=== PATIENT | female | born 1995 | race Caucasian/White ===

== ENCOUNTER 2020-04-07 11:22 | Emergency (ER) | payer SELFPAY ==
[~2020-04-07] VITALS: Ht 162.5 cm; Wt 92.0 kg
[2020-04-07 11:22] VITALS: BP 147/100
--- OUTSIDE RECORDS SUMMARY | 2020-04-07 11:27 | XMS REPORT | Continuity of Care Document ---
Author Organization Unknown Address Unknown Phone Unavailable Allergies There is no data. Medications There is no data. Problems There is no data. Procedures There is no data. Results Test Result Range SUREPATH PAP RFX HPV mRNA E6/E7 - 15:02 CLINICAL INFORMATION: NRG LMP: NRG PREV. PAP: NRG PREV. BX: NRG SOURCE: Cervix NRG STATEMENT OF ADEQUACY: NRG INTERPRETATION/RESULT: NRG ADVANCED NURSING PROFESSOR: NRG COMMENT NRG Encounters ACCT No. Visit Date/Time Discharge Status Pt. Type Provider Facility Loc./Unit Complaint [id number] 06/21/2019 14:00:00 06/21/2019 23:59:5 9 [facility] Outpatient [facility] [id number] 06/21/2019 14:00:00 Document Registration [id number] 04/07/2020 11:23:[address] Emergency ERICH DEAN, MOHIT Simms [facility] ER COVID SYMPTOMS
--- NOTE | 2020-04-07 12:20 | NUR ---
Pt swabbed for COVID-19 at this time
--- NOTE | 2020-04-07 12:30 | NUR ---
Pt exhibiting high heart rate and high blood pressure throughout visit. Pt denies cardiac history. Pt reports severe anxiety. This nurse discussed pt's condition with Marquita Allred, nurse practitioner via phone. Marquita agreed to see pt if pt desired. Pt reports currently feeling very anxious about being here. This nurse informed pt, because pt is now considered a PUI due to being tested today, pt would not be able to return to work later today. Pt reports that pt thought pt could be tested today and return to work until results come back. Pt reports this information has caused an increase in anxiety. From time of arrival to ED, male with pt has stated, "We want to be swabbed and leave." This nurse offered multiple times for pt to be seen and evaluated by a provider. At one point, pt wanted to be seen by a provider stating, "I just want to make sure I am okay." However, after conversation with male, pt and male intend to leave AMA.
--- NOTE | 2020-04-07 12:32 | ED Cough/URI ---
General Chief Complaint: Respiratory Problems Stated Complaint: COVID SYMPTOMS Nursing Triage Note: Pt c/o cold sweats, SOB for a week, diarrhea for one month and cough for 2 months. Pt is requestinig to be tested for COVID-19. Sepsis Screen: No Definite Risk History of Present Illness Date Seen by Provider: Apr 07, 2020 Time Seen by Provider: 11:45 Initial Comments 25 year old female, seen by virtual visit between ERs with [employer]IVER. Patient refuses to have a full visit, just requesting COVID-19 testing. After COVID-19 testing complete, requested to leave AMA. No further evaluation completed. Allergies and Home Medications Allergies Coded Allergies: No Known Drug Allergies (Unverified , 11/27/12) Patient Home Medication List Home Medication List Reviewed: Yes Review of Systems Review of Systems Constitutional: no symptoms reported, see HPI All Other Systems Reviewed Negative Unless Noted: Yes Past Ecachgm-Vmjwei-Qpxgbv Hx Past Med/Social Hx: Reviewed Nursing Past Med/Soc Hx Patient Social History Recent Foreign Travel: No Contact w/Someone Who Travel: No Recent Infectious Disease Expo: No Immunizations Up To Date Tetanus Booster (TDap): More than 5yrs Past Medical History Last Menstrual Period: Mar 27, 2020 Physical Exam Vital Signs - First Documented 04/07/20 11:22 Temp 37.1 Pulse 122 Resp 18 B/P (MAP) 147/100 (116) Pulse Ox 99 O2 Delivery Room Air Capillary Refill : Less Than 3 Seconds Height: '" Weight: lbs. oz. kg; 34.00 BMI Method:Stated Progress/Results/Core Measures Suspected Sepsis Recent Fever Within 48 Hours: No Infection Criteria Present: None New/Unexplained Altered Menta: No Sepsis Screen: No Definite Risk SIRS Temperature: Pulse: 122 Respiratory Rate: 18 Blood Pressure 147 /100 Mean: 116 Results/Orders Lab Results Laboratory Tests Test 04/07/20 12:20 Range/Units My Orders Orders - RAHEL HODGSON Coronavirus Sars-Cov-2 So 2018 (04/07/20 11:35) Vital Signs/I&O 04/07/20 04/07/20 11:22 12:55 Temp 37.1 Pulse 122 122 Resp 18 B/P (MAP) 147/100 (116) 156/93 138/90 150/94 Pulse Ox 99 O2 Delivery Room Air Capillary Refill : Less Than 3 Seconds Blood Pressure Mean: 116 Departure Impression Primary Impression: COVID PUI Disposition: 07 AGAINST MEDICAL ADVICE Condition: Stable Departure-Patient Inst. Decision time for Depature: 12:15 Referrals: [facility] (PCP/Family) Primary Care Physician Patient Instructions: Coronavirus Disease 2019 (COVID-19) (DC), Coronavirus Disease 2019 (COVID-19) Tests, Cough, Adult (DC) Add. Discharge Instructions: You need to quarantine and isolated home until your test results were called. Call your healthcare provider [facility] if symptoms are not improving or worsen. Return to the emergency department for new, urgent health care problems. All discharge instructions reviewed with patient and/or family. Voiced understanding. RAHEL HODGSON Apr 07, 2020 12:32
--- NOTE | 2020-04-07 12:50 | NUR ---
Male person that presented to ED with pt was very controlling the entire visit. Male often would not allow pt to answer for self. Pt wanted financial assistance package and male would not allow pt to take one. Pt could not talk on phone with reigstration without male listening and male telling pt to not answer certain questions. This nurse tried to talk to the male while pt was on the phone with registration and male cut this nurse off in able to listen to pt's conversation stating, "It is my job to take care of her." This nurse was able to ask pt, while male was on the phone with registration, if pt was okay and safe. Pt responded, "Yes."
== END 2020-04-07 12:50 | disposition left against medical advice (07) ==
LOC: EDUNIT# 11:22 → ER 11:23
DX: Z20.828 Contact with and (suspected) exposure to other viral communicable diseases (principal)
CPT/HCPCS: 87635